=== PATIENT | female | born 1980 | race Caucasian/White ===

== ENCOUNTER 2021-05-21 03:18 | Emergency (ER) | payer BC ==
[~2021-05-21] VITALS: Ht 167.6 cm; Wt 79.8 kg
[2021-05-21 05:15] LABS: BASO # 0.03 (0.02-0.10); EOS # 0.17 (0.04-0.40); HEMATOCRIT 42.1 % (37.0-47.0); HEMOGLOBIN 13.6 g/dL (12.5-16.0); LYMPH# 2.25 (1.50-4.00); MEAN CELL VOLUME 95 fl (78-100); MEAN CORPUSCULAR HEMOGLOBIN 31 pg (27-31); MEAN CORPUSCULAR HGB CONC 32 g/dL (33-37); MEAN PLATELET VOLUME 9.7 fl (7.4-10.4); MONO # 0.64 (0.20-0.80); NEU # 5.36 (1.40-6.50); PLATELET COUNT 256 K/mm3 (130-400); RED BLOOD COUNT 4.42 M/mm3 (4.10-5.30); WHITE BLOOD COUNT 8.5 K/mm3 (4.8-10.8)
[2021-05-21 05:18] LABS: ALBUMIN 3.7 g/dL (3.5-5.0); POTASSIUM 3.5 mmol/L (3.5-5.1)
[2021-05-21 05:20] LABS: CALCIUM 8.6 mg/dL (8.3-10.5)
[2021-05-21 05:21] LABS: TOTAL PROTEIN 6.2 g/dL (6.4-8.3)
[2021-05-21 05:23] LABS: TOTAL BILIRUBIN 0.2 mg/dL (0.2-1.2)
[2021-05-21 05:32] LABS: URINE APPEARANCE HAZY; URINE COLOR YELLOW
[2021-05-21 05:44] LABS: PH-URINE 5.5 (5.0 - 8.0); URINE BILIRUBIN NEGATIVE (NEGATIVE); URINE BLOOD NEGATIVE (NEGATIVE); URINE GLUCOSE NEGATIVE (NEGATIVE); URINE KETONE NEGATIVE (NEGATIVE); URINE LEUKOCYTE ESTERASE NEGATIVE (NEGATIVE); URINE NITRATE NEGATIVE (NEGATIVE); URINE PROTEIN(semi-quant) TRACE mg/dL (NEGATIVE); URINE UROBILINOGEN NORMAL (NORMAL); URINE WBC 0-1 /hpf (0-3)
[2021-05-21] MEDS ORDERED: PHENERGAN 25 TA25 MG PO ×3 (07:28→08:04)
[2021-05-21 08:01] VITALS: BP 125/73
== END 2021-05-21 08:01 | disposition home or self-care (01) ==
LOC: ED 03:18
PROVIDERS: Nurse Practitioner
DX: A08.4 Viral intestinal infection, unspecified (principal); Z20.822 Contact with and (suspected) exposure to COVID-19; Z32.02 Encounter for pregnancy test, result negative
CPT/HCPCS: J2405; J2550; J7030; Q9967